=== PATIENT | female | born 2000 | race Caucasian/White ===

== ENCOUNTER 2021-09-18 14:17 | Emergency (ER) | payer OTHER ==
[~2021-09-18 14:17] MED LIST: IBUPROFEN600 MG PO; LODINE CAP 300300 MG PO
== END 2021-09-18 16:48 | disposition left against medical advice (07) ==
LOC: ER1 14:17
DX: Z53.21 Procedure and treatment not carried out due to patient leaving prior to being seen by health care provider (principal)

== ENCOUNTER → 2022-04-15 | Outpatient (CLI) | payer OTHER | LOC: KOH-I 14:48 | DX: M41.9 Scoliosis, unspecified (principal); M13.0 Polyarthritis, unspecified | CPT/HCPCS: 72070; 72100 ==